=== PATIENT | female | born 1975 | race Caucasian/White ===

== ENCOUNTER 2023-04-17 19:31 | Emergency (ER) | payer MEDICAID ==
[~2023-04-17] VITALS: Ht 157.5 cm; Wt 72.6 kg
[2023-04-17 19:37] VITALS: BP 119/76; PULSE 85; RESP 18; TEMP 97.4; O2SAT 99
[2023-04-17] MEDS: diphenhydrAMINE 50 MG CAP PO ONE (20:00)
[2023-04-17] MEDS: predniSONE 20 MG TAB PO ONE (20:01)
[2023-04-17] MEDS: FAMOTIDINE 20 MG TAB PO ONE (20:02)
[2023-04-17 20:05] VITALS: PULSE 86; RESP 18; O2SAT 98
== END 2023-04-17 20:06 | disposition left against medical advice (07) ==
LOC: MED 19:31
DX: L29.9 Pruritus, unspecified (principal); Z88.2 Allergy status to sulfonamides; Z88.8 Allergy status to other drugs, medicaments and biological substances; Z79.899 Other long term (current) drug therapy
CPT/HCPCS: 99284; J7512; Q0163